=== PATIENT | female | born 1925 | race African-American/Black ===

== ENCOUNTER 2017-07-02 09:54 | Observation (INO) | payer OTHER, BC ==
--- NOTE | 2017-07-02 10:01 | PDOC ---
History of Present Illness - General Stated Complaint: LOSS VISION IN L EYE Time Seen by Provider: 07/02/17 09:57 - History of Present Illness Initial Comments: 07/02/17 09:58 Chief complaint vision loss History of present illness: This is an 89-year-old woman with past medical history significant for hypertension past surgical history significant for knee surgery presents to the emergency department with sudden loss of vision in her left eye yesterday. Patient denied any headaches jaw pain jaw claudication fever or malaise weakness and slurred speech was seen by ophthalmology yesterday and was suspected to have vision loss secondary to central retinal artery occlusion versus ophthalmic artery occlusion with a guarded visual prognosis. Client Engagement Manager was concerned about the possibility of a thromboembolic event versus temporal arteritis and recommended patient go to the emergency department. She presents to the emergency department today with the aforementioned symptomatology at the request of her equine vet. Symptoms are persistent constant no exacerbating or alleviating factors no pain. Her vision loss is severe in nature. Past History - Past Medical History Allergies/Adverse Reactions: Allergies Allergy/AdvReac Type Severity Reaction Status Date / Time No Known Allergies Allergy Verified 07/02/17 10:16 Home Medications: Ambulatory Orders Acetaminophen [Tylenol -] 500 mg PO BID 06/26/15 Ascorbate Calcium [Vitamin C] 500 mg PO DAILY 06/26/15 B1/B2/B3/B5/B6/Iron/Meth/Choln [Geritol Tonic] 354 ml PO DAILY 09/14/15 Ferrous Sulfate [Iron] 325 mg PO DAILY tablet 09/14/15 Severance Xl 1 tab PO DAILY 09/14/15 Anemia: Yes Asthma: No Cancer: No Cardiac Disorders: No CVA: No COPD: No CHF: No Dementia: No Diabetes: No GI Disorders: No Disorders: No HTN: Yes Hypercholesterolemia: No Liver Disease: No Seizures: No Thyroid Disease: No - Surgical History Abdominal Surgery: No Appendectomy: No Cardiac Surgery: No Cholecystectomy: Yes (1983) Lung Surgery: No Neurologic Surgery: No Orthopedic Surgery: Yes (RIGHT KNEE REPLACEMENT 10-10-12) - Suicide/Smoking/Psychosocial Hx Smoking History: Never smoked Have you smoked in the past 12 months: No Number of Cigarettes Smoked Daily: 0 Hx Alcohol Use: No Drug/Substance Use Hx: No Substance Use Type: None Hx Substance Use Treatment: No Review of Systems - Review of Systems Comments:: 07/02/17 10:00 ROS: A complete review of 10 out of 10 review of systems is taken and is negative apart from what is previously mentioned below and in the HPI. *Physical Exam - Physical Exam Comments: 07/02/17 10:00 Vitals: Triage Vital signs reviewed General Appearance: no acute distress, well nourished well developed, Head: Atraumatic, Eyes: Pupils equal reactive round, extraocular movement intact Neck: Supple;No Nucal rigidity Chest Wall: Nontender Cardiac: Regular rate and rhythym, no murmurs, no rubs, no gallops, Lungs: Clear to auscultation bilateral, good air movement bilaterally, Abdomen: Soft, non distended, normal bowel sounds, non tender to palpation Genitourinary: Rectal: Exam deferred Extremities: Full range of motion to all extremities, no cyanosis, clubbing, or edema Skin: Warm and dry, no rashes or lesions, no rash, no petechiae Neuro: AOX3; Cranial Nerves 2-12 grossly intact, Strength intact to all extremities, Sensation intact to all extremities,gait normal Psych: normal mood, normal affect Heart Score/ECG Review - ECG Impressions Comment:: 07/02/17 12:23 EKG performed at 10:57 AM demonstrates rate of 78, rhythm of sinus, axis equal to normal. 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 No other focal neurologic findings Differential diagnosis includes central retinal artery occlusion versus ophthalmic artery occlusion less likely temporal arteritis less likely central neurologic process We'll order head CT labs ESR CRP Reevaluation 1225 case discussed with patient's primary care provider we will observe neurologic consultation and for further medical management. *DC/Admit/Observation/Transfer Diagnosis at time of Disposition: Vision loss - Discharge Dispostion Admit: Yes - Referrals - Patient Instructions - Post Discharge Activity
[2017-07-02 10:29] VITALS: BMI 30.8
[2017-07-02 10:54] LABS: BASO % 0.6 % (0-2.0); EOS % 1.7 % (0-4.5); HEMATOCRIT 30.8 % (32.4-45.2); HEMOGLOBIN 10.2 GM/dl (10.7-15.3); LYMPH % 14.8 % (8-40); MCH 31.4 pg (25.7-33.7); MCHC 33.1 g/dl (32.0-36.0); MEAN CELL VOLUME 94.9 fl (80-96); MEAN PLT VOLUME 7.7 fl (7.5-11.1); MONO % 15.4 % (3.8-10.2); NEUT % 67.5 % (42.8-82.8); PLATELET COUNT 248 K/MM3 (134-434); RBC 3.25 M/mm3 (3.60-5.2); RDW 12.7 % (11.6-15.6); WHITE BLOOD COUNT 3.7 K/mm3 (4.0-10.8)
[2017-07-02 10:57] LABS: ANION GAP 4 (8-16); BLOOD UREA NITROGEN 24 mg/dl (7-18); CALCIUM 8.8 mg/dl (8.4-10.2); CHLORIDE 104 mmol/L (98-107); CO2 25 mmol/L (22-28); CREATININE 0.9 mg/dl (0.6-1.3); GLUCOSE,RANDOM 94 mg/dl (74-106); POTASSIUM 4.2 mmol/L (3.5-5.1); SODIUM 133 mmol/L (136-145)
[2017-07-02] MEDS ORDERED: FLUORESCEIN NA 1 EA STRIP ONE (13:08)
--- NOTE | 2017-07-02 17:15 | CON.NEURO ---
Consult - Alcohol/Substance Use Hx Alcohol Use: No - Smoking History Smoking history: Never smoked Have you smoked in the past 12 months: No Aproximately how many cigarettes per day: 0 Home Medications - Allergies Allergies/Adverse Reactions: Allergies Allergy/AdvReac Type Severity Reaction Status Date / Time No Known Allergies Allergy Verified 07/02/17 10:16 - Home Medications Home Medications: Ambulatory Orders Acetaminophen [Tylenol -] 500 mg PO BID 06/26/15 Ascorbate Calcium [Vitamin C] 500 mg PO DAILY 06/26/15 B1/B2/B3/B5/B6/Iron/Meth/Choln [Geritol Tonic] 354 ml PO DAILY 09/14/15 Ferrous Sulfate [Iron] 325 mg PO DAILY tablet 09/14/15 [place] Xl 1 tab PO DAILY 09/14/15 Physical Exam-Neuro Vital Signs: Vital Signs Temperature 98.8 F 07/02/17 10:15 Pulse Rate 83 07/02/17 14:29 Respiratory Rate 20 07/02/17 14:29 Blood Pressure 136/60 07/02/17 14:29 O2 Sat by Pulse Oximetry (%) 96 07/02/17 10:15 Labs: CBC, BMP 07/02/17 10:35 07/02/17 10:35 Assessment/Plan cc Sudden visual loss in left eye HPI 89 Year old female history of hypertension and left knee replacement. She developed left eye visual loss yeserday. Following which , she went to see her eye doctor.Eye evaluation suggested retinal artery vs opthalmic artery occlusion. Patient denies any pain. She has no symptoms of fever, muscle pain or aches, or jaw claudication suggestive of polymyalgia rheumatica. Patient ct scan of head is unremarkable, Her carotid ultrasound show no critical stenosis. She was not taking aspirin or statin. She never had any heart diseaes or stroke in past. She lives in [place] and denies smoking Past Medical History as above. NKDA Neurological Examination Alert follow command, oriented x 2 Eomi, pupils are reactive , right eye visual field is normal by confrontation Left eye there is barely light perception, she could not see hand movement, she could not count on left eye in all quadrant moving all extremity motor strenght is normal, sensation is normal CT head unremarkable Carotid ultrasound no severe stenosis Assessment- left retinal artery vs opthalmic artery occlusion, Less likely to be temporal arteritis Plan -- esr is pending suggest to give her aspirin and start low dose lipitor 20 mg once a day - mri of brain and mra of neck can also be obtained - inpatient eye consult can be obtained if available - not a tpa candidate as out of window - Unlikely to be candidate of thrombectomy Thankign you so much Telly Ball MD
[2017-07-02] MEDS: ASPIRIN COATED 81 MG TABLET.EC PO SCH (17:45)
[2017-07-02] MEDS: ATORVASTATIN CA 20 MG TABLET (FP) PO SCH (21:32)
[2017-07-02] MEDS: ACETAMINOPHEN 500 MG TABLET (FP) PO SCH (21:32)
--- NOTE | 2017-07-02 21:40 | HP ---
CHIEF COMPLAINT: vision loss PCP: Fader HISTORY OF PRESENT ILLNESS: This is 89 year old female with a significant past medical history of HTN and DVT/PE who presented to the ED with sudden loss of vision in her left eye yesterday. She was seen by her apartment leasing agent who sent her to the ED for evaluation for thrombus in retinal artery or ophthalmic artery. She denies headache or other neuro symptoms. ER course was notable for: (1) CT head no acute changes (2) carotid doppler without significant stenosis (3) neuro consult completed Recent Travel: pt denies PAST MEDICAL HISTORY: HTN, DVT/PE, pulmonary edema, anemia PAST SURGICAL HISTORY: cholecystectomy 1984 hysterectomy in her 20s due to fibroids carpal tunnel B/L R TKR 09/2012 Social History: Smoking: pt denies Alcohol: pt denies Drugs: pt denies Family History: mother age 36, childbirth father age 74, kidney disease sister age 96, BrCA, "heart condition" 6 other siblings all , unknown causes no children Allergies No Known Allergies Allergy (Verified 07/02/17 10:16) HOME MEDICATIONS: 3 Medication Instructions Recorded Acetaminophen [Tylenol -] 500 mg PO BID 06/26/15 Ascorbate Calcium [Vitamin C] 500 mg PO DAILY 06/26/15 B1/B2/B3/B5/B6/Iron/Meth/Choln 354 ml PO DAILY 09/14/15 [Geritol Tonic] Ferrous Sulfate [Iron] 325 mg PO DAILY tablet 09/14/15 Gratis Xl 1 tab PO DAILY 09/14/15 REVIEW OF SYSTEMS CONSTITUTIONAL: Absent: fever, chills, diaphoresis, generalized weakness, malaise, loss of appetite, weight change HEENT: Present: visual changes Absent: rhinorrhea, nasal congestion, throat pain, throat swelling, difficulty swallowing, mouth swelling, ear pain, eye pain CARDIOVASCULAR: Absent: chest pain, syncope, palpitations, irregular heart rate, lightheadedness , peripheral edema RESPIRATORY: Absent: cough, shortness of breath, dyspnea with exertion, orthopnea, wheezing, stridor, hemoptysis GASTROINTESTINAL: Absent: abdominal pain, abdominal distension, nausea, vomiting, diarrhea, constipation, melena, hematochezia GENITOURINARY: Absent: dysuria, frequency, urgency, hesitancy, hematuria, flank pain, genital pain MUSCULOSKELETAL: Absent: myalgia, arthralgia, joint swelling, back pain, neck pain SKIN: Absent: rash, itching, pallor HEMATOLOGIC/IMMUNOLOGIC: Absent: easy bleeding, easy bruising, lymphadenopathy, frequent infections ENDOCRINE: Absent: unexplained weight gain, unexplained weight loss, heat intolerance, cold intolerance NEUROLOGIC: Absent: headache, focal weakness or paresthesias, dizziness, unsteady gait, seizure, mental status changes, bladder or bowel incontinence PSYCHIATRIC: Absent: anxiety, depression, suicidal or homicidal ideation, hallucinations. PHYSICAL EXAMINATION Vital Signs - 24 hr 3 07/02/17 07/02/17 07/02/17 10:15 11:37 14:29 Temperature 98.8 F Pulse Rate 82 Pulse Rate [ 83 Right Radial] Respiratory 16 20 Rate Blood Pressure 136/60 Blood Pressure 106/95 136/60 [Right Arm] O2 Sat by Pulse 96 Oximetry (%) 3 07/02/17 07/02/17 15:26 18:05 Temperature 97.5 F L 97.5 F L Pulse Rate 72 72 Pulse Rate [ Right Radial] Respiratory 18 18 Rate Blood Pressure 141/54 141/54 Blood Pressure [Right Arm] O2 Sat by Pulse 100 100 Oximetry (%) GENERAL: Awake, alert, and fully oriented, in no acute distress. HEAD: Normal with no signs of trauma. EYES: Pupils equal, round and reactive to light, extraocular movements intact, sclera anicteric, conjunctiva clear. No lid lag. No vision left eye. Only minimal light perception. EARS, NOSE, THROAT: Ears normal, nares patent, oropharynx clear without exudates. Moist mucous membranes. NECK: Normal range of motion, supple without lymphadenopathy, JVD, or masses. LUNGS: Breath sounds equal, clear to auscultation bilaterally. No wheezes, and no crackles. No accessory muscle use. HEART: Regular rate and rhythm, normal S1 and S2 without murmur, rub or gallop. ABDOMEN: Soft, nontender, not distended, normoactive bowel sounds, no guarding, no rebound, no masses. No hepatomegaly or splenomegaly. MUSCULOSKELETAL: Normal range of motion at all joints. No bony deformities or tenderness. No CVA tenderness. UPPER EXTREMITIES: 2+ pulses, warm, well-perfused. No cyanosis. No clubbing. No peripheral edema. LOWER EXTREMITIES: 2+ pulses, warm, well-perfused. No calf tenderness. No peripheral edema. NEUROLOGICAL: Cranial nerves II-XII intact. Normal speech. Normal gait. PSYCHIATRIC: Cooperative. Good eye contact. Appropriate mood and affect. SKIN: Warm, dry, normal turgor, no rashes or lesions noted, normal capillary refill. Laboratory Results - last 24 hr 3 07/02/17 07/02/17 07/02/17 10:35 10:35 10:35 WBC 3.7 L RBC 3.25 L Hgb 10.2 L Hct 30.8 L MCV 94.9 MCH 31.4 MCHC 33.1 RDW 12.7 Plt Count 248 MPV 7.7 Neutrophils % 67.5 Lymphocytes % 14.8 Monocytes % 15.4 H Eosinophils % 1.7 Basophils % 0.6 ESR 40 H Sodium 133 L Potassium 4.2 Chloride 104 Carbon Dioxide 25 Anion Gap 4 L BUN 24 H Creatinine 0.9 Random Glucose 94 Calcium 8.8 C-Reactive Protein 1.6 H ECG NSR vent rate 78, QTC 453 minimal voltage criteria for LVH flattened T wave lead 3, no other ST/T wave changes Radiology Results CT head IMPRESSION: Moderate atrophy and mild to moderate chronic microvascular ischemic disease changes. No gross acute intracranial pathology is identified. Correlate clinically to determine further evaluation and follow-up. Reported By: Alfredo Reddy MD 07/02/17 1205 Carotid doppler Impression: There are moderate-sized plaques at the right common carotid bifurcation and bulb with approximately 60% of area narrowing without evidence of hemodynamically significant stenosis. There are no moderate-sized plaques at the left common carotid bifurcation/bulb with 45% of the area narrowing without evidence of hemodynamically significant stenosis Follow-up is needed. Reported By: Alfredo Reddy MD 07/02/17 1523 CXR IMPRESSION: No acute disease. Reported By: Dominguez Potts MD 07/02/17 1146 ASSESSMENT/PLAN: 89yF with PMH HTN, DVT/PE, pulmonary edema, anemia presented with sudden vision loss left eye. Vision loss L eye r/o L retinal artery vs ophthalmic artery occlusion - neuro consult appreciated - MRI brain/MRA neck pending - seen by ophtho yesterday, note in chart. Consider inpt eval - monitor on tele HTN - cont norvasc, losartan anemia - cont iron and folic acid - monitor H/H DVT PPX - defer anticoagulation as anticipated LOS <48h, reassess if longer stay FEN - tolerating po - BMP in am - low sodium diet Dispo: pt currently requires further observation for management of her emergent condition. Visit type - Emergency Visit Emergency Visit: Yes ED Registration Date: 07/02/17 Care time: The patient presented to the Emergency Department on the above date and was hospitalized for further evaluation of their emergent condition. - New Patient This patient is new to me today: Yes Date on this admission: 07/02/17 - Critical Care Critical Care patient: No
[2017-07-03] MEDS: ACETAMINOPHEN 500 MG TABLET (FP) PO SCH ×2 (09:47→23:48)
[2017-07-03] MEDS: ASPIRIN COATED 81 MG TABLET.EC PO SCH (09:47)
[2017-07-03] MEDS: FOLIC ACID 1 MG TABLET (FP) PO SCH (09:47)
[2017-07-03] MEDS: FERROUS SO4 325 MG TABLET (FP) PO SCH (09:47)
[2017-07-03] MEDS: LOSARTAN POTASSIUM 50 MG TABLET (FP) PO SCH (09:47)
[2017-07-03] MEDS: POTASSIUM CHLORIDE TABS 10 MEQ TABLET.ER (FP) PO SCH (09:48)
[2017-07-03] MEDS: ASCORBIC ACID 500 MG TABLET (FP) PO SCH (09:48)
[2017-07-03] MEDS: amLODIPine BESYLATE 5 MG TABLET (FP) PO SCH (09:48)
[2017-07-03] MEDS ORDERED: CHOLN PO SCH (10:00)
[2017-07-03] MEDS ORDERED: [UNRECOGNIZED DRUG - OTHER] PO SCH (10:00)
[2017-07-03] MEDS ORDERED: B3 PO SCH (10:00)
[2017-07-03] MEDS ORDERED: B6 PO SCH (10:00)
[2017-07-03] MEDS ORDERED: IRON PO SCH (10:00)
[2017-07-03] MEDS ORDERED: B2 PO SCH (10:00)
[2017-07-03] MEDS ORDERED: LOSARTAN POTASSIUM 100 MG TABLET PO SCH (10:00)
[2017-07-03] MEDS ORDERED: B5 PO SCH (10:00)
[2017-07-03] MEDS ORDERED: OMEGA PO SCH (10:00)
[2017-07-03] MEDS ORDERED: B1 PO SCH (10:00)
[2017-07-03] MEDS ORDERED: METH PO SCH (10:00)
[2017-07-03] MEDS: HYDROCHLOROTHIAZIDE 25 MG TABLET (FP) PO SCH (10:22)
[2017-07-03] MEDS ORDERED: SODIUM CHLORIDE 500 ML IV STA (17:14)
--- NOTE | 2017-07-03 17:45 | PN ---
Progress Note (short form) - Note Progress Note: HPI 89 Year old female history of hypertension and left knee replacement. She developed left eye visual loss yeserday. Following which , she went to see her eye doctor.Eye evaluation suggested retinal artery vs opthalmic artery occlusion. Patient denies any pain. She has no symptoms of fever, muscle pain or aches, or jaw claudication suggestive of polymyalgia rheumatica. Patient ct scan of head is unremarkable, Her carotid ultrasound show no critical stenosis. She was not taking aspirin or statin. She never had any heart diseaes or stroke in past. She lives in [place] and denies smoking mri of brain and mra was unremarkable Neurological Examination Alert follow command, oriented x 2 Eomi, pupils are reactive , right eye visual field is normal by confrontation Left eye there is barely light perception, she could not see hand movement, she could not count on left eye in all quadrant moving all extremity motor strenght is normal, sensation is normal CT head unremarkable Carotid ultrasound no severe stenosis mri of brain and mra of brain unremarkable esr 40 Assessment- left retinal artery vs opthalmic artery occlusion, Less likely to be temporal arteritis Plan -continue aspirin and start low dose lipitor 20 mg once a day - optho want to follow outpaitent - not a tpa candidate as out of window - no improvement , and esr was 40 , unlikley to be temporal arteritis Thanking you so much Telly Ball MD
--- NOTE | 2017-07-03 21:00 | PN ---
Physical Exam: SUBJECTIVE: Patient seen and examined oob to chair. Loss of left eye vision persists. OBJECTIVE: Vital Signs Period Temp Pulse Resp BP Sys/Hawkins Pulse Ox Last 24 Hr 97.8 F-98.6 F 73-79 18-20 135-149/49-63 96-97 GENERAL: The patient is awake, alert, oriented x 2. In no acute distress. NEUROLOGICAL: Restricted left visual field by confrontation; unable to see light or movement in left eye LUNGS: Breath sounds equal, clear to auscultation bilaterally HEART: Regular rate and rhythm, S1, S2 ABDOMEN: Soft, nontender, nondistended, normoactive bowel sounds, no guarding, no rebound EXTREMITIES: 2+ pulses, warm, well-perfused CBCD WBC 3.7 K/mm3 (4.0-10.8) L 07/02/17 10:35 RBC 3.25 M/mm3 (3.60-5.2) L 07/02/17 10:35 Hgb 10.2 GM/dl (10.7-15.3) L 07/02/17 10:35 Hct 30.8 % (32.4-45.2) L 07/02/17 10:35 MCV 94.9 fl (80-96) 07/02/17 10:35 MCHC 33.1 g/dl (32.0-36.0) 07/02/17 10:35 RDW 12.7 % (11.6-15.6) 07/02/17 10:35 Plt Count 248 K/MM3 (134-434) 07/02/17 10:35 MPV 7.7 fl (7.5-11.1) 07/02/17 10:35 CMP Sodium 133 mmol/L (136-145) L 07/02/17 10:35 Potassium 4.2 mmol/L (3.5-5.1) 07/02/17 10:35 Chloride 104 mmol/L (98-107) 07/02/17 10:35 Carbon Dioxide 25 mmol/L (22-28) 07/02/17 10:35 Anion Gap 4 (8-16) L 07/02/17 10:35 BUN 24 mg/dl (7-18) H 07/02/17 10:35 Creatinine 0.9 mg/dl (0.6-1.3) 07/02/17 10:35 Calcium 8.8 mg/dl (8.4-10.2) 07/02/17 10:35 Active Medications Generic Name Dose Route Start Last Admin Trade Name Jolanta PRN Reason Stop Dose Admin Acetaminophen 500 mg 07/02/17 22:00 07/03/17 09:47 Tylenol - PO 500 mg BID MAULIK Administration Amlodipine Besylate 5 mg 07/03/17 10:00 07/03/17 09:48 Norvasc - PO 5 mg DAILY MAULIK Administration Ascorbic Acid 500 mg 07/03/17 10:00 07/03/17 09:48 Vitamin C - PO 500 mg DAILY MAULIK Administration Aspirin 81 mg 07/02/17 17:30 07/03/17 09:47 Ecotrin - PO 81 mg DAILY MAULIK Administration Atorvastatin Calcium 20 mg 07/02/17 22:00 07/02/17 21:32 Lipitor - PO 20 mg HS MAULIK Administration Ferrous Sulfate 325 mg 07/03/17 10:00 07/03/17 09:47 Feosol - PO 325 mg DAILY MAULIK Administration Folic Acid 1 mg 07/03/17 10:00 07/03/17 09:47 Folic Acid - PO 1 mg DAILY MAULIK Administration Hydrochlorothiazide 25 mg 07/03/17 10:00 07/03/17 10:22 Hctz - PO 25 mg DAILY MAULIK Administration Losartan Potassium 100 mg 07/03/17 10:00 07/03/17 09:47 Cozaar - PO 100 mg DAILY MAULIK Administration Non-Formulary Medication 354 ml 07/03/17 10:00 B1/B2/B3/B5/B6/Iron/Meth/Choln [Geritol Tonic] PO DAILY [facility] Non-Formulary Medication 1 tab 07/03/17 10:00 [place] Xl PO DAILY [facility] Potassium Chloride 10 meq 07/03/17 10:00 07/03/17 09:48 K-Dur - PO 10 meq DAILY [facility] Administration ASSESSMENT/PLAN: 89 year-old female with a PMH significant for HTN, DVT, PE, and anemia. Presented with acute loss of vision in her left eye. She was seen by her resource recovery engineer who sent her to the ED for evaluation for retinal artery v. ophthalmic artery occlusion. Acute loss of vision left eye of uncertain etiology h/o DVT/PE --retinal artery v. opthalmic artery occlusion in setting of a h/o DVT and PE ; not on anticoagulation --CT head unremarkable --US carotids no critical stenosis --MRI/MRA brain unremarkable --ESR 40; unlikely temporal arteritis --seen and evaluated by neurology: not a TPA candidate as outside the window ; continue ASA and Lipitor 20mg --opthalmology consult was requested; advised by RYAN Hay opthalmologist called and said patient can be followed as outpatient; need to verify tomorrow that patient will be seen and evaluated as inpatient --concern that patient has h/o thromboembolic events (PE/DVT) and is not on anticoagulation; suggest contacting PCP for further information Hypertension --BP stable --continue amlodipine, losartan, HCTZ, K-dur Anemia --h/h stable Visit type - Emergency Visit Emergency Visit: Yes ED Registration Date: 07/02/17 Care time: The patient presented to the Emergency Department on the above date and was hospitalized for further evaluation of their emergent condition. - New Patient This patient is new to me today: Yes Date on this admission: 07/03/17 - Critical Care Critical Care patient: No
[2017-07-03] MEDS: ATORVASTATIN CA 20 MG TABLET (FP) PO SCH (21:32)
[2017-07-04 09:27] VITALS: BP 140/59; PULSE 79; TEMP 98.3
[2017-07-04] MEDS: ASCORBIC ACID 500 MG TABLET (FP) PO SCH (09:30)
[2017-07-04] MEDS: POTASSIUM CHLORIDE TABS 10 MEQ TABLET.ER (FP) PO SCH (09:30)
[2017-07-04] MEDS: HYDROCHLOROTHIAZIDE 25 MG TABLET (FP) PO SCH (09:30)
[2017-07-04] MEDS: FERROUS SO4 325 MG TABLET (FP) PO SCH (09:30)
[2017-07-04] MEDS: amLODIPine BESYLATE 5 MG TABLET (FP) PO SCH (09:31)
[2017-07-04] MEDS: FOLIC ACID 1 MG TABLET (FP) PO SCH (09:31)
[2017-07-04] MEDS: ACETAMINOPHEN 500 MG TABLET (FP) PO SCH (09:31)
[2017-07-04] MEDS: LOSARTAN POTASSIUM 50 MG TABLET (FP) PO SCH (09:31)
[2017-07-04] MEDS: ASPIRIN COATED 81 MG TABLET.EC PO SCH (09:31)
--- NOTE | 2017-07-04 13:37 | DS ---
Physical Exam: SUBJECTIVE: Patient seen and examined OBJECTIVE: Vital Signs Period Temp Pulse Resp BP Sys/Hawkins Pulse Ox Last 24 Hr 97.8 F-98.5 F 76-83 18-20 107-142/43-81 PHYSICAL EXAM GENERAL: The patient is awake, alert, and fully oriented, in no acute distress. HEAD: Normal with no signs of trauma. EYES: PERRL, extraocular movements intact, sclera anicteric, conjunctiva clear, loss of vision left eye ENT: Ears normal, nares patent, oropharynx clear without exudates, moist mucous membranes. NECK: Trachea midline, full range of motion, supple. LUNGS: Breath sounds equal, clear to auscultation bilaterally, no wheezes, no crackles, no accessory muscle use. HEART: Regular rate and rhythm, S1, S2 without murmur, rub or gallop. ABDOMEN: Soft, nontender, nondistended, normoactive bowel sounds, no guarding, no rebound, no hepatosplenomegaly, no masses. EXTREMITIES: 2+ pulses, warm, well-perfused, no edema. NEUROLOGICAL: Cranial nerves II through XII grossly intact. Normal speech, gait not observed. PSYCH: Normal mood, normal affect. SKIN: Warm, dry, normal turgor, no rashes or lesions noted. LABS HOSPITAL COURSE: Date of Admission:07/02/17 Date of Discharge: 07/04/17 This is an 89 year-old female with a PMH significant for HTN, DVT, PE off AC and anemia. Presented with acute loss of vision in her left eye. who was seen by her systems security analyst who sent her to the ED for evaluation for retinal artery v. ophthalmic artery occlusion. Imaging ruled out acute pathology.CT head unremarkable,US carotids no critical stenosis. MRI/MRA brain unremarkable. ESR 40; unlikely temporal arteritis. Pt was seen and evaluated by neurology, not a TPA candidate as outside the window, recommend to continue on ASA and Lipitor 20mg. Ophthalmology consult was requested, advised by OR[employer]LE APPLICATION CONSULTANT Hay systems security analyst called and said patient can be followed as outpatient. Today, pt refused to wait for the systems security analyst, recommend out pt followup. Hypertension: BP stable,recommend to continue amlodipine, losartan, HCTZ, K-dur Anemia: CBC stable Minutes to complete discharge: 40 Discharge Summary Reason For Visit: VISION LOSS Condition: Good - Instructions Diet, Activity, Other Instructions: Heart healthy diet Recommend out patient Ophthalmology followup. Followup on ESR level. For any worsening visual changes advised to call Dr. Lovelace Referrals: Mayur Jurado MD [Staff Physician] - (in a few days ) Todd Lovelace MD [Staff Physician] - 1 Week Disposition: HOME - Home Medications Comprehensive Discharge Medication List: Ambulatory Orders Acetaminophen [Tylenol .Extra-Strength -] 500 mg PO BID 06/26/15 Ascorbate Calcium [Vitamin C] 500 mg PO DAILY 06/26/15 B1/B2/B3/B5/B6/Iron/Meth/Choln [Geritol Tonic] 354 ml PO DAILY 09/14/15 Ferrous Sulfate [Iron] 325 mg PO DAILY tablet 09/14/15 Phil Campbell Xl 1 tab PO DAILY 09/14/15 Aspirin Coated [Ecotrin -] 81 mg PO DAILY tablet.ec 07/04/17 Atorvastatin Ca [Lipitor] 20 mg PO HS tablet 07/04/17 This patient is new to me today: Yes Date on this admission: 07/04/17 Emergency Visit: Yes ED Registration Date: 07/02/17 Care time: The patient presented to the Emergency Department on the above date and was hospitalized for further evaluation of their emergent condition. Critical Care patient: No - Discharge Referral Referred to [facility] Med P.C.: No
--- NOTE | 2017-07-06 19:52 | EKG ---
Test Reason : Blood Pressure : / mmHG Vent. Rate : 078 BPM Atrial Rate : 078 BPM P-R Int : 160 ms QRS Dur : 090 ms QT Int : 398 ms P-R-T Axes : 068 -27 025 degrees QTc Int : 453 ms NORMAL SINUS RHYTHM MINIMAL VOLTAGE CRITERIA FOR LVH, MAY BE NORMAL VARIANT BORDERLINE ECG NO PREVIOUS ECGS AVAILABLE Confirmed by JESSICA MERA MD ([id number]) on 07/06/2017 7:52:16 PM Referred By: THOMAS BACH Confirmed By:JESSICA MERA MD
== END 2017-07-04 11:20 | disposition home or self-care (01) ==
LOC: FER 09:54 → FM/S 15:26
PROVIDERS: ADMIT Internal Medicine; ATTEND Nurse Practitioner Family
DX: H54.62 Unqualified visual loss, left eye, normal vision right eye (principal); I10 Essential (primary) hypertension; D64.9 Anemia, unspecified; Z96.651 Presence of right artificial knee joint
CPT/HCPCS: 36415; 70450-TC; 70547-TC; 70551-TC; 71045-TC-FY; 80048; 85025; 85651; 86140; 93005; 93880-TC; 99282-25; G0378